=== PATIENT | male | born 1975 | race Caucasian/White ===

== ENCOUNTER 2017-01-03 15:30 | Emergency (ER) | payer OTHER | END 2017-01-03 17:30 | disposition home or self-care (01) | LOC: ER 15:30 | DX: K08.89 Other specified disorders of teeth and supporting structures (principal); K21.9 Gastro-esophageal reflux disease without esophagitis; F17.210 Nicotine dependence, cigarettes, uncomplicated; Z88.2 Allergy status to sulfonamides; Z88.5 Allergy status to narcotic agent; Z88.6 Allergy status to analgesic agent ==

== ENCOUNTER 2017-01-09 23:53 | Emergency (ER) | payer OTHER ==
[2017-01-10 01:08] LABS: BASO # 0.1 10_X3_uL (0.0-0.1); BASO % 0.6 % (0.2-1.2); EOS # 0.4 10_X3_uL (0.0-0.5); EOS % 3.3 % (0.8-7.0); GRAN # 6.3 10_X3_uL (1.8-5.4); GRAN % 59.5 % (34.0-67.9); HEMATOCRIT 41.2 % (40-51); HEMOGLOBIN 13.3 g/dL (13.7-17.5); LYMPH % 28.4 % (21.8-53.1); MEAN CORPUSCULAR HEMOGLOBIN 27.9 pg (27.0-33.0); MEAN CORPUSCULAR HGB CONC 32.3 g/dL (32.0-36.0); MEAN CORPUSCULAR VOLUME 86.4 fL (79-92); MEAN PLATELET VOLUME 9.5 fl (7.5-11.5); MONO # 0.9 10_X3_uL (0.3-0.8); MONO % 8.2 % (5.3-12.2); PLATELET COUNT 335 x10_3/uL (163-337); RED BLOOD COUNT 4.77 x10_6/uL (4.6-6.1); RED CELL DISTRIBUTION WIDTH 14.4 % (11.6-14.4); WHITE BLOOD COUNT 10.5 x10_3/uL (4.2-9.1)
[2017-01-10 01:14] LABS: BLOOD UREA NITROGEN 9 mg/dL (7-18); CALCIUM 8.1 mg/dL (8.7-10.7); CARBON DIOXIDE 21 mmol/L (21-32); CREATININE 0.7 mg/dL (0.6-1.3); GLUCOSE,RANDOM 148 mg/dL (70-99)
[2017-01-10 01:36] LABS: POTASSIUM 4.1 mmol/L (3.5-5.1); SODIUM 142 mmol/L (136-145)
== END 2017-01-10 02:15 | disposition home or self-care (01) ==
LOC: ER 23:53
PROVIDERS: General Practice
DX: R07.89 Other chest pain (principal); J84.9 Interstitial pulmonary disease, unspecified; I10 Essential (primary) hypertension; F17.210 Nicotine dependence, cigarettes, uncomplicated; Z88.2 Allergy status to sulfonamides; Z88.6 Allergy status to analgesic agent
CPT/HCPCS: 36415; 71010; 80048; 85025; 85379; 93005; 99070; 99285-25

== ENCOUNTER 2017-01-30 14:18 | Emergency (ER) | payer OTHER | END 2017-01-30 15:19 | disposition home or self-care (01) | LOC: ER 14:18 | DX: K08.89 Other specified disorders of teeth and supporting structures (principal); K02.9 Dental caries, unspecified; R68.84 Jaw pain; I10 Essential (primary) hypertension; E11.9 Type 2 diabetes mellitus without complications; Z88.2 Allergy status to sulfonamides; Z88.6 Allergy status to analgesic agent; Z79.899 Other long term (current) drug therapy; Z79.84 Long term (current) use of oral hypoglycemic drugs | CPT/HCPCS: 99282 ==

== ENCOUNTER 2017-03-12 13:31 | Emergency (ER) | payer OTHER | END 2017-03-12 15:25 | disposition home or self-care (01) | LOC: ER 13:31 | DX: K08.89 Other specified disorders of teeth and supporting structures (principal); F17.210 Nicotine dependence, cigarettes, uncomplicated; Z88.2 Allergy status to sulfonamides; Z88.6 Allergy status to analgesic agent; Z88.5 Allergy status to narcotic agent; Z79.899 Other long term (current) drug therapy | CPT/HCPCS: 99282 ==